=== PATIENT | female | born 1945 | race Caucasian/White ===

== ENCOUNTER 2018-03-07 10:58 | Emergency (ER) | payer MEDICARE, BC ==
--- NOTE | 2018-03-07 12:32 | US ---
Left breast ultrasound: Multiple real-time images were obtained of the outer left breast. Ill-defined mixed echogenic mass noted at the 3 o'clock position in area described as lump measuring 4.3 x 2.0 x 5.5 cm. This contains small cystic areas. Given the history of trauma this is most likely due to focal hematoma. Close clinical follow-up recommended to make sure this decreases and resolves over time. Impression: 1. Findings and recommendations as noted above. Diagnostic code #3
--- NOTE | 2018-03-07 13:11 | EDM.PDOC ---
ED HPI GENERAL MEDICAL PROBLEM - General Chief Complaint: General Stated Complaint: LEFT BREAST INJURY Time Seen by Provider: 03/07/18 11:15 Source of Information: Reports: Patient History Limitations: Reports: No Limitations - History of Present Illness INITIAL COMMENTS - FREE TEXT/NARRATIVE: 72-year-old female with a chief complaint of left breast bruising and a mass. She fell a couple of weeks ago and since then has had some bruising to the breast area. She wasn't particularly concerned about it but seeks medical attention today because it seemed like a bruise wasn't clearing up and she can also feel a more firm mass underneath the bruising. She called her primary care provider to get this checked out and was told to come to the emergency department. She doesn't have any pain. She has no other complaint. She's never had anything like this before. She does take a baby aspirin daily, no other blood thinners. Denies sustaining any additional injuries during this fall. - Related Data Allergies Allergy/AdvReac Type Severity Reaction Status Date / Time codeine Allergy Vomiting Verified 03/07/18 11:03 Home Meds: Home Meds Aspirin [Halfprin] 81 mg PO BID 03/07/18 [History] Calcium Carbonate [Calcium] 600 mg PO DAILY 03/07/18 [History] Cholecalciferol (Vitamin D3) [Vitamin D] 800 units PO ASDIRECTED 03/07/18 [ History] DULoxetine [Cymbalta] 60 mg PO DAILY 03/07/18 [History] Fish Oil/[place]-3 Fatty Acids [Fish Oil 1,000 MG] 1 cap PO DAILY 03/07/18 [ History] Gabapentin [Neurontin] 600 mg PO BID 03/07/18 [History] Levothyroxine 25 mcg PO ACBREAKFAST 03/07/18 [History] Losartan [Cozaar] 25 mg PO DAILY 03/07/18 [History] Magnesium Oxide [Magnesium] 400 mg PO DAILY 03/07/18 [History] Meloxicam 7.5 mg PO DAILY 03/07/18 [History] Multivitamin [Multivitamins] 1 cap PO BID 03/07/18 [History] Omeprazole 20 mg PO BIDAC 03/07/18 [History] atorvaSTATin [Lipitor] 10 mg PO DAILY 03/07/18 [History] rOPINIRole HCl [rOPINIRole] 10 mg PO DAILY 03/07/18 [History] tiZANidine HCl [Tizanidine HCl] 2 mg PO DAILY 03/07/18 [History] Past Medical History Cardiovascular History: Reports: High Cholesterol, Hypertension Neurological History: Reports: Neuropathy, Peripheral Social & Family History - Tobacco Use Smoking Status *Q: Never Smoker - Recreational Drug Use Recreational Drug Use: No ED ROS GENERAL - Review of Systems Review Of Systems: See Below Constitutional: Reports: No Symptoms Respiratory: Reports: No Symptoms Cardiovascular: Reports: No Symptoms Musculoskeletal: Reports: No Symptoms Skin: Reports: Bruising Neurological: Reports: No Symptoms ED EXAM, GENERAL - Physical Exam Exam: See Below Exam Limited By: No Limitations General Appearance: Alert, WD/WN, No Apparent Distress Eye Exam: Bilateral Eye: Normal Inspection Ears: Normal External Exam Nose: Normal Inspection Throat/Mouth: Normal Inspection, Normal Oropharynx, Normal Voice Head: Atraumatic, Normocephalic Neck: Normal Inspection, Supple Respiratory/Chest: No Respiratory Distress, Other (Left breast: Ecchymosis across lower area of the breast, old appearing. She does have a large area of firmness palpable directly beneath the ecchymosis. No fluctuance. No tenderness. ) Cardiovascular: Normal Peripheral Pulses, Regular Rate, Rhythm, No Edema, No Murmur GI/Abdominal: Soft, Non-Tender, No Distention Extremities: Normal Inspection Neurological: Alert, Oriented, Normal Cognition, No Motor/Sensory Deficits Psychiatric: Normal Affect, Normal Mood Skin Exam: Warm, Intact, Normal Color, No Rash Course - Vital Signs Last Recorded V/S: Last Vital Signs Temp 35.8 C 03/07/18 11:03 Pulse 71 03/07/18 11:03 Resp 17 03/07/18 11:03 BP 155/64 H 03/07/18 11:03 Pulse Ox 95 03/07/18 11:03 - Re-Assessments/Exams Free Text/Narrative Re-Assessment/Exam: 03/07/18 16:03 Ultrasound shows a mass measuring approximately 2 x 4 x 5 cm in the area of the patient's ecchymosis. This is thought to be a hematoma. Radiologist recommends follow-up imaging to ensure that it resolves. I discussed this with the patient. Departure - Departure Time of Disposition: 13:08 Disposition: Home, Self-Care 01 Clinical Impression: Posttraumatic hematoma of breast Qualifiers: Encounter type: initial encounter Laterality: left Qualified Code(s): S20.02XA - Contusion of left breast, initial encounter - Discharge Information Instructions: Hematoma, [id number] Referrals: PCP,Not In Area [Primary Care Provider] - Forms: ED Department Discharge Additional Instructions: Follow up with your primary care provider for further care. You should have repeat imaging of the breast once the bruising resolves to ensure that there is no underlying mass. However, your ultrasound today shows that the firm mass you feel is probably a healing hematoma.
== END 2018-03-07 13:35 | disposition home or self-care (01) ==
LOC: JD.ED 10:58
DX: S20.02XA Contusion of left breast, initial encounter (principal); E78.00 Pure hypercholesterolemia, unspecified; I10 Essential (primary) hypertension; Z88.5 Allergy status to narcotic agent; Z79.82 Long term (current) use of aspirin; Z79.899 Other long term (current) drug therapy; W19.XXXA Unspecified fall, initial encounter
CPT/HCPCS: 76642-LT; 76642-LT-26; 99283; 99284-25

== ENCOUNTER 2021-06-07 11:07 | Emergency (ER) | payer MEDICARE, BC ==
[2021-06-07] MEDS ORDERED: Sodium Chloride 0.9% 10 ML Syringe FLUSH PRN (11:41)
[2021-06-07] MEDS ORDERED: HYDROmorphone 0.5 MG/0.5 ML Syringe IVPUSH ONE (11:41)
[2021-06-07] MEDS ORDERED: Ondansetron 4 MG/2 ML SDV IVPUSH ONE (11:41)
[2021-06-07] MEDS ORDERED: Sodium Chloride 0.9% 1,000 ML IV SCH (11:45)
[2021-06-07] MEDS ORDERED: Diatrizoate Meglumine/Diatrizoate Sodium 37% 120 ML Bottle PO ONE ×2 (11:56→12:05)
[2021-06-07] MEDS ORDERED: Iopamidol 612 MG/ML 100 ML Bottle IVPUSH ONE (12:05)
[2021-06-07] MEDS ORDERED: Iopamidol 612 MG/ML 50 ML SDV IVPUSH ONE (12:05)
--- NOTE | 2021-06-07 12:31 | EDM.PDOC ---
ED HPI GENERAL MEDICAL PROBLEM - General Chief Complaint: Abdominal Pain Stated Complaint: ABDOMINAL PAIN Time Seen by Provider: 06/07/21 11:22 Source of Information: Reports: Patient, Family History Limitations: Reports: No Limitations - History of Present Illness INITIAL COMMENTS - FREE TEXT/NARRATIVE: 75-year-old female presents the emergency department today with complaints of left lower quadrant abdominal pain and watery diarrhea that started 2 days ago. Per the patient's report she states that she was ambulating [facility] days ago when she developed severe left lower quadrant abdominal pain and has developed watery diarrhea stools. She states the stools are too numerous to count and she has been incontinent of stool as a result. She denies any jah red blood in the stool and states that the stool is dark green to brown-colored. She denies any recent fever, chills, nausea or vomiting. She denies any headache, cough sore throat or respiratory symptoms. She is from [place] and is visiting here for the summer. She states she had a full cardiac work-up completed prior to leaving [place] and states it was unremarkable. She does have a history of hypertension, hypothyroid and hypercholesterolemia. 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 Left Abdomen Pain Score (Numeric/FACES): 7 - Related Data Allergies Allergy/AdvReac Type Severity Reaction Status Date / Time codeine AdvReac Vomiting Verified 06/07/21 11:26 Home Meds: Home Meds Aspirin [Halfprin] 81 mg PO BID 03/07/18 [History] Cholecalciferol (Vitamin D3) [Vitamin D] 2,000 units PO ASDIRECTED 03/07/18 [History] DULoxetine [Cymbalta] 60 mg PO DAILY 03/07/18 [History] Fish Oil/[place]-3 Fatty Acids [Fish Oil 1,000 MG] 1 cap PO BID 03/07/18 [History] Gabapentin [Neurontin] 600 mg PO BID 03/07/18 [History] Levothyroxine 50 mcg PO ACBREAKFAST 03/07/18 [History] Losartan [Cozaar] 100 mg PO DAILY 03/07/18 [History] Multivitamin [Multivitamins] 1 cap PO BID 03/07/18 [History] atorvaSTATin [Lipitor] 40 mg PO DAILY 03/07/18 [History] rOPINIRole HCl [rOPINIRole] 10 mg PO DAILY 03/07/18 [History] Furosemide 40 mg PO DAILY 06/07/21 [History] Midodrine 5 mg PO DAILY 06/07/21 [History] Pantoprazole [ProTONIX] 40 mg PO DAILY 06/07/21 [History] amLODIPine [Norvasc] 10 mg PO DAILY 06/07/21 [History] Past Medical History HEENT History: Reports: Impaired Vision Cardiovascular History: Reports: High Cholesterol, Hypertension Respiratory History: Reports: SOB, Other (See Below) Other Respiratory History: lunge damage due to chemical exposure on the job Gastrointestinal History: Reports: Chronic Diarrhea, Fecal Incontinence, GERD 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: Musculoskeletal History: Reports: Osteoporosis Neurological History: Reports: Neuropathy, Peripheral, TIA Psychiatric History: Reports: Anxiety, Panic Attack Endocrine/Metabolic History: Reports: Obesity/BMI 30+ - Infectious Disease History Infectious Disease History: Reports: Novel Coronavirus - Past Surgical History GI Surgical History: Reports: Cholecystectomy, Colonoscopy Social & Family History - Tobacco Use Tobacco Use Status *Q: Never Tobacco User Second Hand Smoke Exposure: No - Caffeine Use Caffeine Use: Reports: None - Recreational Drug Use Recreational Drug Use: No ED ROS GENERAL - Review of Systems Review Of Systems: Comprehensive ROS is negative, except as noted in HPI. ED EXAM, GI/ABD - Physical Exam Exam: See Below Exam Limited By: No Limitations General Appearance: Alert, WD/WN, No Apparent Distress Ears: Normal External Exam, Hearing Grossly Normal Nose: Normal Inspection Throat/Mouth: Normal Inspection, Normal Lips, Normal Voice, No Airway Compromise Head: Atraumatic Neck: Normal Inspection, Supple Respiratory/Chest: No Respiratory Distress, Lungs Clear, Normal Breath Sounds, No Accessory Muscle Use, Chest Non-Tender Cardiovascular: Normal Peripheral Pulses, Regular Rate, Rhythm, No Edema, No Murmur GI/Abdominal Exam: Normal Bowel Sounds, Soft, No Distention, Tender (Left lower quadrant) (Female) Exam: Deferred Rectal (Female) Exam: Deferred Back Exam: Normal Inspection Extremities: Normal Inspection, Normal Range of Motion, No Pedal Edema Neurological: Alert, Oriented, Normal Cognition Psychiatric: Normal Affect, Normal Mood Skin Exam: Warm, Dry, Intact, Normal Color, No Rash Lymphatic: No Adenopathy Course - Vital Signs Text/Narrative:: Stated above patient with a 2-day history of left lower quadrant abdominal pain with watery diarrhea stools and incontinence of stool. States that the abdominal pain is worse when ambulating. If she is laying still in bed she does not really notice it. Upon assessment, the patient is awake alert and oriented. She does not appear in any distress. Abdomen is tender to left lower quadrant. She denies any urinary symptoms. I have ordered labs to include a CBC, CMP, C-reactive protein, urinalysis with micro and culture if indicated. We will give her normal saline at 150 mL's per hour as she does have a history of hypertension and does take Lasix so I do not want to overload her with fluids. We will give her Dilaudid for the pain as well as Reglan to prevent nausea. We will also obtain a CT of the abdomen pelvis. Last Recorded V/S: Last Vital Signs Temp 97.6 F 06/07/21 11:23 Pulse 88 06/07/21 11:23 Resp 14 06/07/21 11:23 BP 139/55 L 06/07/21 11:23 Pulse Ox 94 L 06/07/21 11:23 - Orders/Labs/Meds Orders: Active Orders 24 hr Category Date Time Status Saline Lock Insert [OM.PC] Stat Oth 06/07/21 11:41 Ordered Labs: Laboratory Tests 06/07/21 06/07/21 Range/Units 12:22 12:22 WBC 7.21 (3.98-10.04) K/mm3 RBC 4.57 (3.98-5.22) M/mm3 Hgb 14.5 (11.2-15.7) gm/dl Hct 43.4 (34.1-44.9) % MCV 95.0 H (79.4-94.8) fl MCH 31.7 (25.6-32.2) pg MCHC 33.4 (32.2-35.5) g/dl RDW Std Deviation 44.1 (36.4-46.3) fL Plt Count 269 (182-369) K/mm3 MPV 9.7 (9.4-12.3) fl Neut % (Auto) 60.5 (34.0-71.1) % Lymph % (Auto) 28.6 (19.3-51.7) % [place] % (Auto) 8.6 (4.7-12.5) % Eos % (Auto) 1.5 (0.7-5.8) Baso % (Auto) 0.7 (0.1-1.2) % Neut # (Auto) 4.36 (1.56-6.13) K/mm3 Lymph # (Auto) 2.06 (1.18-3.74) K/mm3 [place] # (Auto) 0.62 H (0.24-0.36) K/mm3 Eos # (Auto) 0.11 (0.04-0.36) K/mm3 Baso # (Auto) 0.05 (0.01-0.08) K/mm3 Sodium 140 (136-145) mEq/L Potassium 3.6 (3.5-5.1) mEq/L Chloride 103 (98-107) mEq/L Carbon Dioxide 23 (21-32) mEq/L Anion Gap 17.6 H (5-15) BUN 20 H (7-18) mg/dL Creatinine 1.2 H (0.55-1.02) mg/dL Est Cr Clr Drug Dosing 38.18 mL/min Estimated GFR (MDRD) 44 (>60) mL/min BUN/Creatinine Ratio 16.7 (14-18) Glucose 147 H (70-99) mg/dL Calcium 9.3 (8.5-10.1) mg/dL Magnesium 2.0 (1.8-2.4) mg/dL Total Bilirubin 0.9 (0.2-1.0) mg/dL AST 23 (15-37) U/L ALT 28 (14-59) U/L Alkaline Phosphatase 57 (46-116) U/L C-Reactive Protein <0.2 (<1.0) mg/dL Total Protein 7.5 (6.4-8.2) g/dl Albumin 4.1 (3.4-5.0) g/dl Globulin 3.4 gm/dL Albumin/Globulin Ratio 1.2 (1-2) Meds: Medications Discontinued Medications Generic Name Dose Route Start Last Admin Trade Name Freq PRN Reason Stop Dose Admin Diatrizoate Meglum/Diatrizoate Sod 40 ml 06/07/21 11:56 06/07/21 13:05 Diatrizoate Meglumine/Diatrizoate Sodium 37% 120 Ml Bottle PO 06/07/21 11:57 40 ml ONETIME ONE Administration Hydromorphone HCl 0.5 mg 08/09/21 11:41 06/07/21 12:24 Hydromorphone 0.5 Mg/0.5 Ml Syringe IVPUSH 06/07/21 11:42 0.5 mg ONETIME ONE Administration Sodium Chloride 1,000 mls @ 150 mls/hr 06/07/21 11:45 06/07/21 12:24 Normal Saline IV 150 mls/hr ASDIRECTED FELY Administration Sodium Chloride 500 mls @ 500 mls/hr 06/07/21 13:00 Normal Saline IV 06/07/21 13:59 .BOLUS ONE Iopamidol 100 ml 06/07/21 12:05 06/07/21 13:05 Iopamidol 612 Mg/Ml 100 Ml Bottle IVPUSH 06/07/21 12:06 100 ml ONETIME ONE Administration Iopamidol 25 ml 06/07/21 12:05 06/07/21 13:04 Iopamidol 612 Mg/Ml 50 Ml Sdv IVPUSH 06/07/21 12:06 50 ml ONETIME ONE Administration Ondansetron HCl 4 mg 06/07/21 11:41 06/07/21 12:24 Ondansetron 4 Mg/2 Ml Sdv IVPUSH 06/07/21 11:42 4 mg ONETIME ONE Administration Sodium Chloride 10 ml 06/07/21 11:41 06/07/21 12:24 Sodium Chloride 0.9% 10 Ml Syringe FLUSH 10 ml ASDIRECTED PRN Administration Keep Vein Open - Re-Assessments/Exams Free Text/Narrative Re-Assessment/Exam: 06/07/21 14:59 Hematology is essentially unremarkable, chemistry reveals sodium of 140, potassium 3.6, chloride 103,, dioxide 23, anion gap 17.6, BUN 20, creatinine 1.2, GFR 44, glucose 147, magnesium 2.0, C- reactive protein less than 0.2 I have ordered a stool for cdiff and stool for shinga and toxins. Radiologist impression CT the abdomen and pelvis: Visualized lung bases show linear densities within the right base most likely due to slight scarring. Liver contains no focal parenchymal abnormality. Slight intrahepatic biliary duct dilation is seen. Common bile duct measures 1.2 cm. Surgical clips are seen from prior cholecystectomy. Biliary findings most likely relate to prior surgery. Spleen size is normal. Adrenal glands show no nodule. Kidneys show symmetric contrast enhancement. No hydronephrosis or mass is seen. Pancreas appears within normal limits. Abdominal aorta shows mild atherosclerotic change with no aneurysm. No retroperitoneal adenopathy or mesenteric abnormalities are seen. Minimal fat-containing abdominal wall hernia seen. No pelvic mass or adenopathy is seen. Delayed images show contrast within the distal ureters and the bladder. Appendix is not visualized with certainty. No bowel dilation is seen. Scattered diverticuli are seen within the descending colon and sigmoid regions without definite inflammatory change seen to indicate diverticulitis. Bone window settings were reviewed which show degenerative change within the lumbar spine with most prominent findings. Mild spondylolisthesis at L5-S1 due to degenerative apophyseal change. I then went in to discuss the lab results with the patient as well as ct results. Pt would like to be discharged to home and states that she will follow up with general surgery. Departure - Departure Time of Disposition: 15:01 Disposition: Home, Self-Care 01 Condition: Good Clinical Impression: Abdominal pain, left lower quadrant Diarrhea Qualifiers: Diarrhea type: unspecified type Qualified Code(s): R19.7 - Diarrhea, unspecified - Discharge Information Instructions: Abdominal Pain, Adult, [id number], Diarrhea, Adult, [id number] Referrals: PCP,None [Primary Care Provider] - Forms: ED Department Discharge Additional Instructions: You were seen in the ED with complaints of abdominal pain and diarrhea stools x 2 days. Labs were completed which were essentially unremarkable. There is no sign of infection. As discussed, your kidney function is slightly decreased. Discussed collecting stool studies and you elected not to do that at this time. Recommend follow up with general surgery. Dr. Whatley is locate here at [facility] or you can follow up with Dr. Marie or Dr. Sanchez at [facility]. Do not take Aleve or ibuprofen for pain. Recommend that you take tylenol 650mg ever 4 hours as needed for pain. Should your condition worsen or change, do not hesitate returning to the ED. Sepsis Event Note (ED) - Evaluation Sepsis Screening Result: No Definite Risk - Focused Exam Vital Signs: Vital Signs Temp Pulse Resp BP Pulse Ox 06/07/21 11:23 97.6 F 88 14 139/55 L 94 L - My Orders Last 24 Hours: My Active Orders 06/07/21 11:41 Saline Lock Insert [OM.PC] Stat - Assessment/Plan Last 24 Hours: My Active Orders 06/07/21 11:41 Saline Lock Insert [OM.PC] Stat
[2021-06-07] MEDS ORDERED: Sodium Chloride 0.9% 500 ML IV ONE (13:00)
--- NOTE | 2021-06-07 13:46 | CT ---
CT abdomen and pelvis Technique: Multiple axial sections were obtained from above the dome of the diaphragm inferiorly through the pubic symphysis. Intravenous contrast and oral contrast was utilized. Delayed images were obtained through the bladder. Reconstructed coronal and sagittal images were obtained. Comparison: No prior CT abdomen or pelvis study is available. Findings: Visualized lung bases show linear densities within the right base most likely due to slight scarring. Liver contains no focal parenchymal abnormality. Slight intrahepatic biliary duct dilatation is seen. Common bile duct measures 1.2 cm. Surgical clips are seen from prior cholecystectomy. Biliary findings most likely relate to prior surgery. Spleen size is normal. Adrenal glands show no nodule. Kidneys show symmetric contrast enhancement. No hydronephrosis or mass is seen. Pancreas appears within normal limits. Abdominal aorta shows mild atherosclerotic change with no aneurysm. No retroperitoneal adenopathy or mesenteric abnormalities are seen. Minimal fat-containing abdominal wall hernia is seen. No pelvic mass or adenopathy is seen. Delayed images show contrast within the distal ureters and the bladder. Appendix is not visualized with certainty. No bowel dilatation is seen. Scattered diverticuli are seen within the descending colon and sigmoid regions without definite inflammatory change seen to indicate diverticulitis. Bone window settings were reviewed which show degenerative change within the lumbar spine with most prominent finding being mild spondylolisthesis at L5-S1 due to degenerative apophyseal change. Impression: 1. Findings as noted above which are felt to be nonacute. 2. Nothing acute is definitely appreciated on CT study of the abdomen and pelvis. Diagnostic code #2
== END 2021-06-07 15:14 | disposition home or self-care (01) ==
LOC: JD.ED 11:07
DX: R10.32 Left lower quadrant pain (principal); R19.7 Diarrhea, unspecified; K21.9 Gastro-esophageal reflux disease without esophagitis; E78.00 Pure hypercholesterolemia, unspecified; I10 Essential (primary) hypertension; E66.9 Obesity, unspecified; Z68.29 Body mass index [BMI] 29.0-29.9, adult; Z86.73 Personal history of transient ischemic attack (TIA), and cerebral infarction without residual deficits; Z88.5 Allergy status to narcotic agent; Z79.82 Long term (current) use of aspirin; Z79.899 Other long term (current) drug therapy; Z86.16 Personal history of COVID-19
CPT/HCPCS: 36415; 74177; 80053; 83735; 85025; 86140; 96374; 96375; 99284; J1170; J2405; J7030; Q9963; Q9967

== ENCOUNTER 2022-03-23 11:15 | Emergency (ER) | payer MEDICARE, BC ==
[2022-03-23 12:47] LABS: CORONAVIRUS COVID-19 NAA NEGATIVE (NEGATIVE)
== END 2022-03-23 14:05 | disposition home or self-care (01) ==
LOC: JD.ED 11:15
DX: J98.9 Respiratory disorder, unspecified (principal); E78.00 Pure hypercholesterolemia, unspecified; I10 Essential (primary) hypertension; K21.9 Gastro-esophageal reflux disease without esophagitis; Z88.5 Allergy status to narcotic agent; Z86.16 Personal history of COVID-19; Z79.82 Long term (current) use of aspirin; Z79.899 Other long term (current) drug therapy; Z20.822 Contact with and (suspected) exposure to COVID-19
CPT/HCPCS: 0240U; 36415; 71045; 80053; 81001; 85025; 86140; 99285